=== PATIENT | male | born 1985 | race Caucasian/White ===

== ENCOUNTER 2017-11-02 13:11 | Emergency (ER) | payer SELFPAY ==
[~2017-11-02] VITALS: Ht 180.3 cm; Wt 88.6 kg
[~2017-11-02 13:11] MED LIST: AMOXICILLIN 50500 MG PO; AMOXICILLIN 8751 TAB PO; LORTAB 5/500 501 TAB PO; NO HOME MEDICATIONS; NORCO 325 MG-51 TAB PO; NORCO 325 MG-7.1 TAB PO; PEN-VEE K500 MG PO; ZOFRAN 4MG T4 MG/TAB PO
[2017-11-02 13:20] VITALS: BP 154/89; PULSE 82; TEMP 97.8
[2017-11-02] MEDS ORDERED: OCUFLOX OPHTH DR5 ML OU (16:10)
== END 2017-11-02 16:14 | disposition home or self-care (01) ==
LOC: COL.ER 13:11
DX: T15.01XA Foreign body in cornea, right eye, initial encounter (principal); S05.02XA Injury of conjunctiva and corneal abrasion without foreign body, left eye, initial encounter; F17.210 Nicotine dependence, cigarettes, uncomplicated; X58.XXXA Exposure to other specified factors, initial encounter